=== PATIENT | male | born 1975 | race Caucasian/White ===

== ENCOUNTER 2017-01-11 11:28 | Emergency (ER) | payer OTHER ==
[2017-01-11] MEDS ORDERED: TDAP ADULT 0.5 ML INJ (BOOSTRIX) IM ONE (11:58)
--- NOTE | 2017-01-11 12:10 | EDPHY ---
H & P Time Seen by Provider: 01/11/17 11:39 HPI/ROS: CHIEF COMPLAINT: right ring finger laceration HISTORY OF PRESENT ILLNESS: 41-year-old male presents emergency department with a laceration to his right ring finger. 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 Tetanus is not up-to-date, he is right-hand- dominant, he denies numbness or tingling to this finger. Smoking Status: Never smoked Physical Exam: GEN: Awake, alert, oriented, no acute distress RESP: nl resp effort MSK: Right ring finger with full active range of motion against resistance, 2 point discrimination intact, cap refill less than 2 seconds SKIN: 1.5 cm superficial laceration to dorsal aspect of right ring finger between PIP and DIP joint Constitutional: Initial Vital Signs Temperature (C) 36.4 C 01/11/17 11:30 Heart Rate 80 01/11/17 11:30 Respiratory Rate 20 01/11/17 11:30 Blood Pressure 168/83 H 01/11/17 11:30 O2 Sat (%) 97 01/11/17 11:30 O2 Delivery Mode Room Air Allergies/Adverse Reactions: No Known Allergies Allergy (Verified 01/11/17 11:29) Home Medications: Medication Instructions Recorded Cephalexin [Keflex] 500 mg PO TID 5 Days 01/11/17 Omeprazole [Prilosec 20 mg] 20 mg PO DAILY 01/11/17 MDM/Departure - MDM Diagnostics: Right ring finger x-ray independently reviewed by me-no foreign body Procedures: Procedure: Laceration repair. Verbal consent was obtained from the patient. The 1.5 cm laceration on the right ring finger was anesthetized using digital block 1% lidocaine without epinephrine. The wound was carefully irrigated by the emergency department pathology technician. Next, the wound was prepped and draped in sterile fashion and explored to its base with a gloved finger. There were no deep structures involved. No tendon injury was identified. No vascular injury was identified. No foreign bodies were identified. The wound was repaired with 5.0 Prolene, 7 simple interrupted sutures. The wound repair was simple. The procedure was performed by myself. Tetanus and antibiotic status were addressed. Medications Given: Discontinued Medications Diphtheria/Tetanus/Acell Pertussis (Boostrix) 0.5 ml IM .ONCE ONE Stop: 01/11/17 11:59 Last Admin: 02/28/17 12:36 Dose: 0.5 ml - Depart Disposition: Home, Routine, Self-Care Clinical Impression: Laceration of right ring finger Condition: Good Instructions: Finger Laceration (ED) Additional Instructions: Return to the emergency department in 12-14 days for suture removal, return sooner for any signs of infection. Stand Alone Forms: Work Comp Follow Up Prescriptions: Cephalexin [Keflex] 500 mg PO TID 5 Days Referrals: NONE *PRIMARY CARE P,. [Primary Care Provider] - As per Instructions
[2017-01-11 13:50] VITALS: BP 132/86; PULSE 75; RESP 16; TEMP 97.9; O2SAT 94
== END 2017-01-11 13:50 | disposition home or self-care (01) ==
PROC: 0HQFXZZ Repair Right Hand Skin, External Approach (ICD-10-PCS; principal; 2017-01-11)
DX: S61.214A Laceration without foreign body of right ring finger without damage to nail, initial encounter (principal); Z23 Encounter for immunization; W25.XXXA Contact with sharp glass, initial encounter; Y92.89 Other specified places as the place of occurrence of the external cause; Y99.8 Other external cause status; Y93.89 Activity, other specified